=== PATIENT | male | born 1960 | race Caucasian/White ===

== ENCOUNTER 2019-10-14 06:56 | Emergency (ER) | payer SELFPAY ==
[2019-10-14 07:10] VITALS: BP 128/87; PULSE 95; TEMP 98.1; BMI 25.8
--- NOTE | 2019-10-14 08:26 | PDOC ---
History of Present Illness - General Chief Complaint: Sore Throat Stated Complaint: SORE THROAT Time Seen by Provider: 10/14/19 07:36 History Source: Patient - History of Present Illness Timing/Duration: reports: week Associated Symptoms: reports: cough, sore throat Past History - Past Medical History Allergies/Adverse Reactions: Allergies Allergy/AdvReac Type Severity Reaction Status Date / Time No Known Allergies Allergy Verified 10/14/19 07:27 Home Medications: Ambulatory Orders Azithromycin 250 mg PO DAILY #6 tablet 10/14/19 COPD: No Diabetes: Yes HTN: Yes - Psycho Social/Smoking Cessation Hx Smoking History: Never smoked Have you smoked in the past 12 months: Yes Number of Cigarettes Smoked Daily: 3 'Breaking Loose' booklet given: 05/17/18 Hx Alcohol Use: No Drug/Substance Use Hx: No Review of Systems - Review of Systems Constitutional: No: Chills, Fever Respiratory: Yes: Cough. No: Wheezing, Hemoptysis Cardiac (ROS): No: Chest Pain *Physical Exam - Vital Signs Last Vital Signs Temp Pulse Resp BP Pulse Ox 98.1 F 95 H 14 128/87 96 10/14/19 07:03 10/14/19 07:03 10/14/19 07:03 10/14/19 07:03 10/14/19 07:03 - Physical Exam General Appearance: Yes: Appropriately Dressed. No: Apparent Distress HEENT: positive: Normal Voice Neck: positive: Supple Respiratory/Chest: positive: Lungs Clear, Normal Breath Sounds. negative: Respiratory Distress, Wheezing Cardiovascular: positive: Regular Rate, S1, S2 Integumentary: positive: Dry, Warm Neurologic: positive: Fully Oriented, Alert, Normal Mood/Affect ED Treatment Course - RADIOLOGY Radiology Studies Ordered: Category Date Time Status CHEST PA & LAT [RAD] Stat Radiology 10/14/19 07:37 Completed Medical Decision Making - Medical Decision Making 10/14/19 08:31 59-year-old male polysubstance abuse, states he started smoking cigarettes 5 years ago, here with sore throat and cough x1 week. Also complaining of possible shortness of breath after coughing fit. No hemoptysis, chest pain, fever or chills. No history of pneumonia see exam Possible viral Exam wnl CXR w/ minimal atelectatic change to L base, no obvious infiltrate -Given hx, will prescribe zpack and encourage smoking cessation -PMD f/u as needed Discharge - Discharge Information Problems reviewed: Yes Clinical Impression/Diagnosis: Cough Condition: Good Disposition: HOME - Additional Discharge Information Prescriptions: Azithromycin 250 mg PO DAILY #6 tablet - Follow up/Referral - Patient Discharge Instructions Patient Printed Discharge Instructions: DI for Viral Upper Respiratory Infection -- Adult Additional Instructions: Your x-ray did not show an obvious pneumonia but there was some nonspecific changes to the left base. Based on your smoking history and xray findings, antibiotics was sent to your pharmacy. Take meds as directed and strongly consider smoking cessation Please follow-up with your PMD - Post Discharge Activity
== END 2019-10-14 08:25 | disposition home or self-care (01) ==
LOC: JER 06:56
DX: J06.9 Acute upper respiratory infection, unspecified (principal); B97.89 Other viral agents as the cause of diseases classified elsewhere; I10 Essential (primary) hypertension; E11.9 Type 2 diabetes mellitus without complications
CPT/HCPCS: 71046-TC-FY; 99281-25

== ENCOUNTER 2020-01-20 08:16 | Emergency (ER) | payer OTHER ==
[2020-01-20 08:32] VITALS: BP 144/69; PULSE 74; TEMP 98.2; BMI 25.8
--- NOTE | 2020-01-20 08:54 | PDOC ---
History of Present Illness - General Chief Complaint: Sore Throat Stated Complaint: SORE THROAT Time Seen by Provider: 01/20/20 08:35 History Source: Patient Exam Limitations: No Limitations Past History - Travel Traveled outside of the country in the last 30 days: No Close contact w/someone who was outside of country & ill: No - Past Medical History Allergies/Adverse Reactions: Allergies Allergy/AdvReac Type Severity Reaction Status Date / Time No Known Allergies Allergy Verified 01/20/20 08:31 Home Medications: Ambulatory Orders Azithromycin 250 mg PO DAILY #6 tablet 10/14/19 Albuterol Sulfate Inhaler - [Ventolin HFA Inhaler -] 1 - 2 inh PO Q4H #1 inhaler 01/20/20 Azithromycin [Zithromax 250mg Tablets -] 250 mg PO UTDICT #6 tab 01/20/20 COPD: No Diabetes: Yes HTN: Yes - Psycho Social/Smoking Cessation Hx Smoking History: Former smoker Have you smoked in the past 12 months: No Number of Cigarettes Smoked Daily: 4 Information on smoking cessation initiated: No 'Breaking Loose' booklet given: 05/17/18 Hx Alcohol Use: No Drug/Substance Use Hx: No Review of Systems - Review of Systems Able to Perform ROS?: Yes Comments:: 01/20/20 08:47 CONSTITUTIONAL: Absent: fever, chills, diaphoresis, generalized weakness, malaise, loss of appetite HEENT: Present: Sore throat Absent: rhinorrhea, nasal congestion, throat swelling, difficulty swallowing, mouth swelling, ear pain, eye pain, visual Changes CARDIOVASCULAR: Absent: chest pain, loss of consciousness, palpitations, irregular heart rate, peripheral edema RESPIRATORY: Present: Cough Absent:shortness of breath, dyspnea with exertion, orthopnea, wheezing, stridor, hemoptysis GASTROINTESTINAL: Absent: abdominal pain, abdominal distension, nausea, vomiting, diarrhea, constipation, melena, hematochezia MUSCULOSKELETAL: Absent: myalgia, arthralgia, joint swelling SKIN: Absent: rash, itching, pallor NEUROLOGIC: Absent: headache, focal weakness or paresthesias, dizziness, unsteady gait, seizure, mental status changes, bladder or bowel incontinence PSYCHIATRIC: Absent: anxiety, depression, suicidal or homicidal ideation, hallucinations. Is the patient limited [place] proficient: No *Physical Exam - Vital Signs Last Vital Signs Temp Pulse Resp BP Pulse Ox 98.2 F 74 16 144/69 98 01/20/20 08:29 01/20/20 08:29 01/20/20 08:29 01/20/20 08:29 01/20/20 08:29 - Physical Exam 01/20/20 08:48 GENERAL: The patient is awake, alert, and fully oriented, in no acute distress. HEAD: Normal with no signs of trauma. EYES: Pupils equal, round and reactive to light, extraocular movements intact, sclera anicteric, conjunctiva clear. HEENT: No nasal congestion or rhinorrhea. No sinus tenderness. Mucous membranes are moist. No tonsillar erythema, exudate or edema. Uvula is midline. No TM bulging , dullness or erythema. LUNGS: Clear to auscultation bilateral without wheezes rales or rhonchi. No respiratory distress. EXTREMITIES: Normal range of motion, no edema. NEUROLOGICAL: Normal speech, normal gait. PSYCH: Normal mood, normal affect. SKIN: Warm, Dry, normal turgor, no rashes or lesions noted. Medical Decision Making - Medical Decision Making 01/20/20 08:48 Patient is a 59-year-old male past medical history of type 2 diabetes, presents to the ER today for 1 week of sore throat, cough and wheezing. He states that when he coughs he hears a whistling in his chest and that is why he came to the ER for evaluation. He denies chills, fever, earache, chest pain, difficulty breathing, nausea, vomiting and diarrhea. Patient states he quit smoking 1 week ago. A/P: Viral illness. On exam lungs are clear to auscultation bilateral without wheezes rales or rhonchi. Throat is nonerythematous without exudate or edema. Shotty LAD in the cervical anterior chain. Exam is otherwise benign, patient appears well. Given the patient has symptoms for over a week with positive smoking history will treat with antibiotics and an albuterol inhaler. Discharge home to follow-up with primary care. I discussed the physical exam findings, ancillary test results and final diagnoses with the patient. I answered all of the patient's questions. The patient was satisfied with the care received and felt comfortable with the discharge plan and treatment plan. The Patient agrees to follow up with the primary care physician/specialist within 24-72 hours. Return precautions were given. Discharge - Discharge Information Problems reviewed: Yes Clinical Impression/Diagnosis: Sore throat Condition: Stable Disposition: HOME - Admission No - Follow up/Referral Referrals: Bill Bellamy MD [Staff Physician] - - Patient Discharge Instructions Patient Printed Discharge Instructions: DI for Viral Pharyngitis Additional Instructions: You have a sore throat or pharyngitis. Take the Z-Rocky as directed for 5 days. Use the albuterol inhaler every 4 hours as needed for wheezing. You may take Motrin 600 mg every 6 hours as needed for pain. Please do warm water gargles and cough drops to help with your pain. Change your toothbrush when you started feeling better. Follow-up with your primary care doctor. Return to the ER for fever, difficulty breathing, difficulty swallowing, or if you have any changes in your symptoms. - Post Discharge Activity Work/Back to School Note: Back to Work
== END 2020-01-20 09:21 | disposition home or self-care (01) ==
LOC: JERFT 08:16
DX: J02.9 Acute pharyngitis, unspecified (principal); B97.89 Other viral agents as the cause of diseases classified elsewhere; I10 Essential (primary) hypertension; E11.9 Type 2 diabetes mellitus without complications
CPT/HCPCS: 99283-25